=== PATIENT | female | born 1940 | race Caucasian/White ===

== ENCOUNTER 2020-08-12 07:04 | Day surgery (SDC) | payer MEDICARE, BC ==
[~2020-08-12] VITALS: Ht 170.2 cm; Wt 81.3 kg
[2020-08-12 08:22] LABS: HEMATOCRIT 38.5 % (37.0-47.0); HEMOGLOBIN 11.6 g/dl (12.5-16.0); MEAN CELL VOLUME 78 fl (80.0-100.0); MEAN CORPUSCULAR HEMOGLOBIN 23 pg (27.0-31.0); MEAN CORPUSCULAR HGB CONC 30 g/dl (33.0-37.0); MEAN PLATELET VOLUME 9.7 fl (7.4-10.4); PLATELET COUNT 328 K/mm3 (130-400); RED BLOOD COUNT 4.95 M/mm3 (4.10-5.30); REDCELL DISTRIBUTION WIDTH-CV 16.8 % (11.5-14.5)
[2020-08-12] MEDS ORDERED: NEXIUM 40MG40 MG PO (08:26)
[2020-08-12 08:27] LABS: CALCIUM 9.2 mg/dL (8.4-10.2); CREATININE, serum 1.07 (0.52-1.25); MAGNESIUM 1.7 mg/dL (1.6-2.3); POTASSIUM 4.2 mmol/L (3.4-5.0)
[2020-08-12] MEDS ORDERED: ATIVAN 0.50.5 MG/TAB PO (08:27)
[2020-08-12] MEDS ORDERED: PLAQUENIL 200M200 MG PO (08:27)
[2020-08-12] MEDS ORDERED: K-DUR 10 MEQ T10 MEQ PO (08:28)
[2020-08-12] MEDS ORDERED: LASIX 20MG TABL20 MG PO (08:29)
[2020-08-12] MEDS ORDERED: COUMADIN 5MG5 MG/TAB PO (08:30)
[2020-08-12] MEDS ORDERED: TYLENOL 500MG500 MG PO (08:31)
[2020-08-12] MEDS ORDERED: LANOXIN 0.120.125 MG PO (08:31)
[2020-08-12 08:32] VITALS: BP 145/87; PULSE 75; TEMP 98.6
[2020-08-12] MEDS ORDERED: NORCO 325 MG-51 TAB PO (08:32)
[2020-08-12 08:33] LABS: INR 2.5 (0.8-3.0); PROTHROMBIN TIME 28.2 SECONDS (9.7-12.8)
[2020-08-12 08:57] LABS: THYROID STIMULATING HORMONE 1.75 uIU/mL (0.465-4.680)
[2020-08-12 11:28] VITALS: BP 121/75; PULSE 82
[2020-08-12 11:45] VITALS: BP 124/74; PULSE 79
[2020-08-12 12:00] VITALS: BP 131/78; PULSE 81
[2020-08-12 12:15] VITALS: BP 129/75; PULSE 79
--- NOTE | 2020-08-12 12:41 | NUR ---
Discharge instructions given to pt.pt verbalizes understanding.INT removed,catheter tip intact.Pt escorted out via wheelchair by this nurse.
== END 2020-08-12 12:43 | disposition home or self-care (01) ==
LOC: COL.CAR 07:04
PROVIDERS: Internal Medicine Cardiovascular Disease
DX: I48.0 Paroxysmal atrial fibrillation (principal); I10 Essential (primary) hypertension; E78.5 Hyperlipidemia, unspecified; I25.2 Old myocardial infarction; M06.9 Rheumatoid arthritis, unspecified; K21.9 Gastro-esophageal reflux disease without esophagitis; M19.90 Unspecified osteoarthritis, unspecified site; Z90.49 Acquired absence of other specified parts of digestive tract; Z90.710 Acquired absence of both cervix and uterus; Z96.641 Presence of right artificial hip joint; Z96.612 Presence of left artificial shoulder joint; Z88.2 Allergy status to sulfonamides; Z88.1 Allergy status to other antibiotic agents; Z88.8 Allergy status to other drugs, medicaments and biological substances; Z87.891 Personal history of nicotine dependence; Z96.653 Presence of artificial knee joint, bilateral; G89.29 Other chronic pain
CPT/HCPCS: J2704

== ENCOUNTER 2020-08-14 09:49 | Emergency (ER) | payer MEDICARE, BC ==
[~2020-08-14] VITALS: Ht 170.2 cm; Wt 81.8 kg
[~2020-08-14 09:49] MED LIST: ATIVAN 0.50.5 MG/TAB PO; COUMADIN 5MG5 MG/TAB PO; K-DUR 10 MEQ T10 MEQ PO; LANOXIN 0.120.125 MG PO; LASIX 20MG TABL20 MG PO; NEXIUM 40MG40 MG PO; NORCO 325 MG-51 TAB PO; PLAQUENIL 200M200 MG PO; TYLENOL 500MG500 MG PO
[2020-08-14 10:14] VITALS: TEMP 98.1
[2020-08-14 10:59] LABS: BASO # 0.1 (0.0-0.2); BASO % 1.2 % (0.0-2.0); EOS # 0.2 (0.0-0.7); EOS % 2.5 % (0-4.0); GRAN # 4.1 (1.4-6.5); HEMATOCRIT 39.4 % (37.0-47.0); HEMOGLOBIN 11.6 g/dl (12.5-16.0); LYMPH % 17.4 % (20.0-51.0); MEAN CELL VOLUME 79 fl (80.0-100.0); MEAN CORPUSCULAR HEMOGLOBIN 23 pg (27.0-31.0); MEAN CORPUSCULAR HGB CONC 29 g/dl (33.0-37.0); MEAN PLATELET VOLUME 9.7 fl (7.4-10.4); MONO # 0.6 (0.1-0.6); MONO % 9.4 % (1.7-9.3); PLATELET COUNT 319 K/mm3 (130-400); RED BLOOD COUNT 4.97 M/mm3 (4.10-5.30); REDCELL DISTRIBUTION WIDTH-CV 17.1 % (11.5-14.5)
[2020-08-14 11:02] LABS: INR 2.6 (0.8-3.0); PROTHROMBIN TIME 29.2 SECONDS (9.7-12.8)
[2020-08-14 11:04] LABS: ALANINE AMINOTRANSFERASE 14 U/L (4-34); ALBUMIN 4.3 gm/dL (3.5-5.0); ALKALINE PHOSPHATASE 98 U/L (50-136); ANION GAP 9 mmol/L (7-16); AST,SGOT 22 U/L (15-37); BILIRUBIN,TOTAL 0.5 mg/dL (0.0-1.0); BLOOD UREA NITROGEN 21 mg/dL (7-17); CALCIUM 9.5 mg/dL (8.4-10.2); CARBON DIOXIDE 26 mmol/L (22-30); CHLORIDE 104 mmol/L (98-107); CREATININE, serum 1.12 (0.52-1.25); GLUCOSE 93 mg/dL (74-106); MAGNESIUM 1.9 mg/dL (1.6-2.3); POTASSIUM 4.1 mmol/L (3.4-5.0); SODIUM 139 mmol/L (137-145); TOTAL PROTEIN 7.4 gm/dL (6.4-8.2)
[2020-08-14 11:16] LABS: TROPONIN-I < 0.012 ng/mL (0.000-0.035)
[2020-08-14 18:43] VITALS: BP 160/87; PULSE 65
== END 2020-08-14 14:17 | disposition home or self-care (01) ==
LOC: COL.ER 09:49
PROVIDERS: Emergency Medicine
DX: I48.91 Unspecified atrial fibrillation (principal); K21.9 Gastro-esophageal reflux disease without esophagitis; I50.9 Heart failure, unspecified; Z88.1 Allergy status to other antibiotic agents; Z88.2 Allergy status to sulfonamides; Z79.01 Long term (current) use of anticoagulants

== ENCOUNTER 2021-05-06 09:48 | Day surgery (SDC) | payer MEDICARE, BC ==
[~2021-05-06] VITALS: Ht 170.3 cm; Wt 85.5 kg
[~2021-05-06 09:48] MED LIST changes: +BETAPACE 120MG120 MG PO; +BETAPACE 80MG80 MG PO; +CIPRO 500MG TA500 MG PO; +FLAGYL500 MG PO; +MIRALAX PA17 GM/Dose PO
[2021-05-06 10:32] LABS: HEMATOCRIT 38.5 % (37.0-47.0); HEMOGLOBIN 11.9 g/dl (12.5-16.0); MEAN CELL VOLUME 84 fl (80.0-100.0); MEAN CORPUSCULAR HEMOGLOBIN 26 pg (27.0-31.0); MEAN CORPUSCULAR HGB CONC 31 g/dl (33.0-37.0); MEAN PLATELET VOLUME 9.3 fl (7.4-10.4); PLATELET COUNT 291 K/mm3 (130-400); RED BLOOD COUNT 4.58 M/mm3 (4.10-5.30); REDCELL DISTRIBUTION WIDTH-CV 15.8 % (11.5-14.5)
[2021-05-06] MEDS ORDERED: CARAFATE 1GM1 G PO (10:35)
[2021-05-06 10:46] LABS: CALCIUM 9.3 mg/dL (8.4-10.2); CREATININE, serum 0.84 (0.52-1.25); POTASSIUM 4.3 mmol/L (3.4-5.0)
[2021-05-06 10:50] LABS: INR 2.9 (0.8-3.0)
[2021-05-06 11:04] LABS: MAGNESIUM 1.7 mg/dL (1.6-2.3)
[2021-05-06 11:06] VITALS: BP 189/102; PULSE 78; TEMP 98
[2021-05-06 11:16] LABS: THYROID STIMULATING HORMONE 1.71 uIU/mL (0.465-4.680)
[2021-05-06 11:30] VITALS: BP 126/81; PULSE 56
--- NOTE | 2021-05-06 11:30 | NUR ---
REPORT FROM JAYJAY ROLDAN, PT IS AWAKE AND ALERT, HOB ELEVATED, GRANDAUGHTER IN ROOM, SIPS ON WATER, CALL LIGHT IN REACH
[2021-05-06 11:45] VITALS: BP 139/83; PULSE 58
--- NOTE | 2021-05-06 11:45 | NUR ---
EKG DONE, DR PRESSLEY INTO SEE PT
[2021-05-06] MEDS ORDERED: BETAPACE 80MG80 MG PO ×2 (11:58)
[2021-05-06 12:00] VITALS: BP 146/79; PULSE 56
--- NOTE | 2021-05-06 12:15 | NUR ---
PT UP ON SIDE OF BED, NO C/O, IV D'CD INTACT. REVIEWED DISCHARGE INST. WITH PT AND GRANDAUGHTER ON INCREASE OF SOTOLOL, NEXT 2 APPTS. REVIEWED MODERATE SEDATION WITH VERBAL UNDERSTANDING. PT UP AND DRESSED, USES CANE, DISCHARGED VIA W/C TO CAR WTIH RELATIVE AT 1225
== END 2021-05-06 12:34 | disposition home health service (06) ==
LOC: COL.CAR 09:48
PROVIDERS: Internal Medicine Cardiovascular Disease
DX: I48.0 Paroxysmal atrial fibrillation (principal); I10 Essential (primary) hypertension; K21.9 Gastro-esophageal reflux disease without esophagitis; E78.5 Hyperlipidemia, unspecified; M19.90 Unspecified osteoarthritis, unspecified site; I25.2 Old myocardial infarction; I25.10 Atherosclerotic heart disease of native coronary artery without angina pectoris; G89.29 Other chronic pain; M54.9 Dorsalgia, unspecified; F41.9 Anxiety disorder, unspecified; Z20.822 Contact with and (suspected) exposure to COVID-19; Z79.899 Other long term (current) drug therapy; Z87.891 Personal history of nicotine dependence; Z79.02 Long term (current) use of antithrombotics/antiplatelets
CPT/HCPCS: J2704; J7120

== ENCOUNTER 2021-08-30 10:32 | Day surgery (SDC) | payer MEDICARE, BC ==
[~2021-08-30] VITALS: Ht 170.3 cm; Wt 86.6 kg
[~2021-08-30 10:32] MED LIST changes: +CARAFATE 1GM1 G PO
[2021-08-30 11:29] VITALS: BP 164/97; PULSE 66; TEMP 98.8
[2021-08-30 11:29] LABS: HEMATOCRIT 37.6 % (37.0-47.0); HEMOGLOBIN 11.7 g/dl (12.5-16.0); MEAN CELL VOLUME 83 fl (80.0-100.0); MEAN CORPUSCULAR HEMOGLOBIN 26 pg (27.0-31.0); MEAN CORPUSCULAR HGB CONC 31 g/dl (33.0-37.0); MEAN PLATELET VOLUME 9.3 fl (7.4-10.4); PLATELET COUNT 327 K/mm3 (130-400); RED BLOOD COUNT 4.51 M/mm3 (4.10-5.30); REDCELL DISTRIBUTION WIDTH-CV 15.2 % (11.5-14.5)
[2021-08-30 11:33] LABS: PROTHROMBIN TIME 44.6 SECONDS (9.7-12.8)
[2021-08-30 11:36] LABS: PARTIAL THROMBOPLASTIN TIME 53.7 SECONDS (26.0-37.0)
[2021-08-30] MEDS ORDERED: XALATAN EYE DROPS OD (11:37)
[2021-08-30] MEDS ORDERED: FLONASEALLERGY NS (11:38)
[2021-08-30] MEDS ORDERED: FLONASE NASAL S16 GM NS (11:38)
[2021-08-30 11:44] LABS: CALCIUM 9.5 mg/dL (8.4-10.2); CREATININE, serum 0.79 mg/dL (0.57-1.11); MAGNESIUM 1.7 mg/dL (1.6-2.6)
[2021-08-30 12:04] LABS: THYROID STIMULATING HORMONE 1.214 uIU/mL (0.350-4.940)
[2021-08-30] MEDS ORDERED: BETAPACE 80MG80 MG PO ×2 (12:09)
[2021-08-30 12:10] VITALS: BP 127/93; PULSE 53
[2021-08-30 12:15] VITALS: BP 136/72; PULSE 54
[2021-08-30 12:30] VITALS: BP 138/68; PULSE 52
[2021-08-30 12:45] VITALS: BP 152/80; PULSE 54
[2021-08-30 13:00] VITALS: BP 166/91; PULSE 56
--- NOTE | 2021-08-30 13:16 | NUR ---
DC instructions reviewed with pt and her granddaughter. Both express understanding. Pt is steady on feet in room. INT DC'd with catheter intact. She has tolerated PO fluids without issue, had denied desire for food, stating they will go out for lunch upon discharge. She is assisted out to granddaughter's car by wheelchair with personal belongings.
== END 2021-08-30 13:16 | disposition home or self-care (01) ==
LOC: COL.CAR 10:32
PROVIDERS: Internal Medicine Cardiovascular Disease
DX: I48.0 Paroxysmal atrial fibrillation (principal); I25.10 Atherosclerotic heart disease of native coronary artery without angina pectoris; K21.9 Gastro-esophageal reflux disease without esophagitis; I10 Essential (primary) hypertension; I08.1 Rheumatic disorders of both mitral and tricuspid valves; F41.9 Anxiety disorder, unspecified; M19.90 Unspecified osteoarthritis, unspecified site; M54.9 Dorsalgia, unspecified; G89.29 Other chronic pain; Z90.49 Acquired absence of other specified parts of digestive tract; Z90.710 Acquired absence of both cervix and uterus; Z90.89 Acquired absence of other organs; Z79.01 Long term (current) use of anticoagulants; Z79.899 Other long term (current) drug therapy; Z87.891 Personal history of nicotine dependence; Z80.3 Family history of malignant neoplasm of breast; Z80.0 Family history of malignant neoplasm of digestive organs; Z82.3 Family history of stroke
CPT/HCPCS: J2704; J7120

== ENCOUNTER 2021-09-03 05:18 | Emergency (ER) | payer MEDICARE, BC ==
[~2021-09-03] VITALS: Ht 170.2 cm; Wt 86.4 kg
[~2021-09-03 05:18] MED LIST changes: +FLONASE NASAL S16 GM NS; +FLONASEALLERGY NS; +XALATAN EYE DROPS OD
[2021-09-03 06:00] VITALS: TEMP 98.7
[2021-09-03 06:34] LABS: BASO # 0.1 K/mm3 (0.0-0.2); BASO % 0.6 % (0.0-2.0); EOS # 0.2 K/mm3 (0.0-0.7); EOS % 2.3 % (0-4.0); GRAN # 6.9 K/mm3 (1.4-6.5); HEMATOCRIT 34.8 % (37.0-47.0); LYMPH # 0.8 K/mm3 (1.2-3.4); MEAN CELL VOLUME 83 fl (80.0-100.0); MEAN CORPUSCULAR HEMOGLOBIN 26 pg (27.0-31.0); MEAN CORPUSCULAR HGB CONC 32 g/dl (33.0-37.0); MEAN PLATELET VOLUME 9.2 fl (7.4-10.4); MONO # 0.8 K/mm3 (0.1-0.6); MONO % 8.8 % (1.7-9.3); PLATELET COUNT 279 K/mm3 (130-400); RED BLOOD COUNT 4.19 M/mm3 (4.10-5.30); REDCELL DISTRIBUTION WIDTH-CV 15.2 % (11.5-14.5)
[2021-09-03 06:45] LABS: INR 4.1 (0.8-3.0)
[2021-09-03 06:50] LABS: PROTHROMBIN TIME 46.2 SECONDS (9.7-12.8)
[2021-09-03 06:55] LABS: ALBUMIN 3.6 gm/dL (3.4-4.8); BILIRUBIN,TOTAL 0.8 mg/dL (0.2-1.2); CALCIUM 9.4 mg/dL (8.4-10.2); CREATININE, serum 0.79 mg/dL (0.57-1.11); POTASSIUM 3.8 mmol/L (3.5-4.5); TOTAL PROTEIN 6.7 gm/dL (6.2-8.1)
[2021-09-03 07:01] LABS: TROPONIN-I 0.015 ng/mL (0.00-0.033)
[2021-09-03] MEDS ORDERED: BETAPACE 80MG80 MG PO (12:00)
[2021-09-03] MEDS ORDERED: NORVASC 5MG5 MG/TAB PO (12:00)
[2021-09-03 12:42] VITALS: BP 194/97; PULSE 72
== END 2021-09-03 12:42 | disposition home or self-care (01) ==
LOC: COL.ER 05:18
PROVIDERS: Emergency Medicine
DX: R07.89 Other chest pain (principal); I10 Essential (primary) hypertension; I48.0 Paroxysmal atrial fibrillation; Z79.01 Long term (current) use of anticoagulants

== ENCOUNTER 2021-10-17 19:36 | Observation (INO) | payer MEDICARE, BC ==
[~2021-10-17] VITALS: Ht 170.2 cm; Wt 64.8 kg
[~2021-10-17 19:36] MED LIST changes: +NORVASC 5MG5 MG/TAB PO
[2021-10-17 20:15] LABS: BASO # 0.1 K/mm3 (0.0-0.2); BASO % 0.6 % (0.0-2.0); EOS # 0.4 K/mm3 (0.0-0.7); EOS % 3.5 % (0-4.0); GRAN # 8.3 K/mm3 (1.4-6.5); GRAN % 75.9 % (42.2-75.2); HEMATOCRIT 38.1 % (37.0-47.0); HEMOGLOBIN 11.7 g/dl (12.5-16.0); LYMPH # 1.3 K/mm3 (1.2-3.4); LYMPH % 11.9 % (20.0-51.0); MEAN CELL VOLUME 84 fl (80.0-100.0); MEAN CORPUSCULAR HEMOGLOBIN 26 pg (27.0-31.0); MEAN CORPUSCULAR HGB CONC 31 g/dl (33.0-37.0); MEAN PLATELET VOLUME 9.9 fl (7.4-10.4); MONO # 0.8 K/mm3 (0.1-0.6); MONO % 7.6 % (1.7-9.3); PLATELET COUNT 321 K/mm3 (130-400); RED BLOOD COUNT 4.54 M/mm3 (4.10-5.30); REDCELL DISTRIBUTION WIDTH-CV 15.4 % (11.5-14.5)
[2021-10-17 20:24] LABS: INR 2.4 (0.8-3.0); PROTHROMBIN TIME 26.8 SECONDS (9.7-12.8)
[2021-10-17 20:33] LABS: ALANINE AMINOTRANSFERASE 17 U/L (0-55); ALKALINE PHOSPHATASE 92 U/L (40-150); ANION GAP 13 mmol/L (7-16); AST,SGOT 16 U/L (5-34); BILIRUBIN,TOTAL 0.5 mg/dL (0.2-1.2); BLOOD UREA NITROGEN 22 mg/dL (10-20); C-REACTIVE PROTEIN 0.59 mg/dL (0.00-0.50); CALCIUM 9.6 mg/dL (8.4-10.2); CARBON DIOXIDE 22 mmol/L (23-31); CHLORIDE 103 mmol/L (98-107); CREATININE, serum 1.01 mg/dL (0.57-1.11); GLUCOSE 119 mg/dL (70-99); LIPASE < 10 U/L (8-78); POTASSIUM 4.5 mmol/L (3.5-4.5); SODIUM 138 mmol/L (136-145); TOTAL PROTEIN 7.2 gm/dL (6.2-8.1)
[2021-10-17 20:43] LABS: TROPONIN-I < 0.010 ng/mL (0.00-0.033)
[2021-10-17] MEDS ORDERED: NORCO 325 MG-51 TAB PO (22:44)
--- NOTE | 2021-10-17 23:25 | NUR ---
To room 353 via stretcher. Transferred to bed with one assist. Oriented to room and policy. Admission assessment complete. A&Ox4. VS stable. Denies nausea/shortness of breath. Rating pain to mid chest 3/10 described as pressure. Reporting very anxious due to recent of . Noted to have bruising to left axilla/chest/shoulder from previous pacer surgery. Plan of care discussed for this shift to include cardiac monitoring/medications/calling for questions or concerns. Verbalizes understanding. Call light in reach. Will monitor.
[2021-10-17 23:41] VITALS: BP 135/78; PULSE 70; TEMP 98
[2021-10-17] MEDS ORDERED: COUMADIN 22.5 MG/TAB PO (23:57)
[2021-10-18] VITALS (8 sets, daily range): BP systolic 115–152; BP diastolic 74–89; PULSE 61–70; TEMP 97.3–97.9
--- NOTE | 2021-10-18 00:53 | NUR ---
C/O pain to left shoulder. Rating pain 7/10 on pain scale described as constant ache. [place] given per dr order. States pain is not in chest-states pain is in shoulder where bruising is.
--- NOTE | 2021-10-18 08:53 | NUR ---
Pt. progressing w/ plan of care. Dr. Dunn in to discuss plan of care. AM meds given and assessment complete. Plan for pt. to remain NPO untill stress test today.
--- NOTE | 2021-10-18 09:35 | NUR ---
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 Patient's son Jack ([phone]) present at bedside. Patient reports that she lives alone at home in [place]. Patient reports that she is independent with her activities of daily living and uses both a cane and a walker to assist with mobility. Patient reports to no oxygen needs within the home. PCP is Dr. Kendall La in [place] and she utilizes [facility] pharmacy for medications with no cost difficulty. Patient reports that she does have a DPOA-HC established and her son Marshall ([phone]) is her medical POA and Jack is her financial POA. States she has a copy of it at home. Patient has a strong desire to have HH PT established post DC. States when her was alove he had [facility] and is comfortable with that agency. PT david requested and will send a referral to [facility]. Discharge plan: Home-possible HH
--- NOTE | 2021-10-18 13:07 | NUR ---
Referral information faxed to Edda at [facility]
[2021-10-18] MEDS ORDERED: PROTONIX 40MG T40 MG PO (16:23)
--- NOTE | 2021-10-18 17:52 | NUR ---
Pt. to discharge home. IV removed, site c/d/i. All d/c paperwork reviewed with the patient. All questions answered. Pt. to leave hospital via wheelchair w/ NOM[facility] [place] and pt.'s granddaughter.
== END 2021-10-18 18:00 | disposition home or self-care (01) ==
LOC: COL.ER 19:36 → MEDICAL 21:18
PROVIDERS: Emergency Medicine; ADMIT Internal Medicine
DX: R07.9 Chest pain, unspecified (principal); R00.1 Bradycardia, unspecified; I48.0 Paroxysmal atrial fibrillation; I25.2 Old myocardial infarction; I12.9 Hypertensive chronic kidney disease with stage 1 through stage 4 chronic kidney disease, or unspecified chronic kidney disease; N18.9 Chronic kidney disease, unspecified; I42.0 Dilated cardiomyopathy; I31.3 Pericardial effusion (noninflammatory); I08.1 Rheumatic disorders of both mitral and tricuspid valves; K21.9 Gastro-esophageal reflux disease without esophagitis; K44.9 Diaphragmatic hernia without obstruction or gangrene; F41.9 Anxiety disorder, unspecified; M19.90 Unspecified osteoarthritis, unspecified site; Z79.899 Other long term (current) drug therapy; Z66 Do not resuscitate; Z95.0 Presence of cardiac pacemaker; Z79.01 Long term (current) use of anticoagulants
CPT/HCPCS: 99239; A9500; G0378; J2270; J2785

== ENCOUNTER 2024-07-10 13:41 | Outpatient (RCR) | payer MEDICARE, BC ==
[~2024-07-10 13:41] MED LIST changes: +COUMADIN 22.5 MG/TAB PO; +PROTONIX 40MG T40 MG PO
== END 2024-08-05 | disposition home or self-care (01) ==
LOC: WSST
DX: R13.10 Dysphagia, unspecified (principal)